=== PATIENT | female | born 1980 | race Hispanic/Latino ===

== ENCOUNTER 2023-12-09 20:37 | Emergency (ER) | payer MEDICAID, OTHER ==
[~2023-12-09] VITALS: Ht 160 cm; Wt 86.6 kg
[2023-12-09 22:27] LABS: APPEARANCE,URINE CLEAR (CLEAR); BILIRUBIN,URINE NEGATIVE (NEGATIVE); COLOR,URINE YELLOW (YELLOW); GLUCOSE, URINE (UA) NEGATIVE (NEGATIVE); KETONES,URINE NEGATIVE (NEGATIVE); LEUKOCYTE ESTERASE ,URINE 25 Leu/uL (NEGATIVE); NITRATE,URINE NEGATIVE (NEGATIVE); OCCULT BLOOD,URINE LARGE (NEGATIVE); PH,URINE 6.5 (5.0-8.0); PROTEIN,URINE 20 mg/dL (NEGATIVE); UROBILINOGEN,URINE 0.2 mg/dL (0.2-1.0)
[2023-12-09 22:34] LABS: ADD UA MICROSCOPIC YES
[2023-12-09 22:37] LABS: MUCUS,URINE RARE LPF (None Seen); SQUAMOUS EPITHELIAL CELL,UR FEW /HPF (0-2)
[2023-12-09] MEDS ORDERED: CEPH500B PO (23:03)
[2023-12-09 23:08] VITALS: BP 141/73; PULSE 73; RESP 20; O2SAT 99
[2023-12-09] MEDS: CEFTRIAXONE 1G VIAL IM ONE (23:11)
== END 2023-12-09 23:13 | disposition home or self-care (01) ==
LOC: EDH 20:37
DX: O23.41 Unspecified infection of urinary tract in pregnancy, first trimester (principal); N39.0 Urinary tract infection, site not specified; I10 Essential (primary) hypertension; E05.90 Thyrotoxicosis, unspecified without thyrotoxic crisis or storm; F41.9 Anxiety disorder, unspecified; Z3A.09 9 weeks gestation of pregnancy; Z98.890 Other specified postprocedural states
CPT/HCPCS: 99285; 76801; 84702; 81001; 36415; 96372; J0696

== ENCOUNTER 2024-07-05 02:20 | Emergency (ER) | payer OTHER, MEDICAID ==
[~2024-07-05] VITALS: Ht 160 cm; Wt 81.6 kg
[~2024-07-05 02:20] MED LIST: CEPH500B PO
--- NOTE | 2024-07-05 02:46 | ERN ---
General Chief Complaint: Back Pain-No Injury Stated Complaint: C/O LOWER BACK PAIN RADIATING TO ABD Time Seen by MD: 02:25 Source: patient History of Present Illness Initial Comments Patient is a 43-year-old female presented to the ED with a 1 day history of lower back pain. Patient states the pain was sudden in onset , intermittent in frequency, rated as a 9/10 and radiates to the lower pelvic area. Patient states that she had a section 3 weeks ago. There is associated nausea but no vomiting, chills but no fevers. Denies any paresthesia, urinary or fecal incontinence. Allergies: Coded Allergies: No Known Drug Allergies (Verified Allergy, 04/27/12) Home Meds Active Scripts Cephalexin Monohydrate (Keflex) 500 Mg Cap, 500 MG PO TID for 7 Days, #21 CAP Prov:ISAMAR PERES 12/09/23 Past Medical History Past Medical History: Anxiety, Hypertension, Other Medical History Other: HYPERTHYROID Past Surgical History: Female( History) : 3 Para: 2 Aborts: 0 ROS Dictation Constitutional: No appetite loss, No fevers, chills , No night sweats, No weakness, fatigue Eye: No vision change, No redness, pain or discharge ENT: No hearing loss, ear pain or discharge, No nose bleeds, No sore throat, Neck: No swelling. pain or stiffness Respiratory: No cough, shortness of breath, wheezing Cardiovascular: No chest pain,, palpitations, dyspnea, No edema Gastrointestinal: No abdominal pain, No nausea, vomiting, No diarrhea, constipation Genitourinary: No painful urination, No blood in urine, No urinary incontinence, No frequency or urgency Musculoskeletal: Low back pain Neurological: No numbness, tingling, No weakness, tremors or seizures Psychiatric: : No depression, No anxiety, No sleep disturbance, No Memory changes Lymphatic: No easy bruising, No bleeding tendencies , No swollen lymph nodes A 13-point Review of Systems was assessed, all of which are negative except for HPI or as indicated above. Physical Exam Physical Exam Dictation General: Alert & Oriented, No acute distress. EENT: No conjunctival redness or discharge noted Tympanic membranes are clear, Normal hearing, Oral mucosa is moist, No pharyngeal erythema, No nasal di scharge, No oral lesions. Neck: Non-tender, No jugular vein distention, No lymphadenopathy, No thyromegaly, Supple. Respiratory: Lungs are clear to auscultation, Respirations are non-labored, Breath sounds are equal, No chest wall tenderness, _. Cardiovascular: Normal rate, Normal rhythm, No murmur, Good pulses equal in all extremities, Normal peripheral perfusion, No edema. Gastrointestinal: Soft, Non-tender, Non-distended, Normal bowel sounds, No organomegaly, _. Musculoskeletal: Normal range of motion, Normal strength, No tenderness, No swelling, No deformity, Normal gait. Integumentary: Warm, Dry, [place], Intact, No pallor, No rash. Neurologic: Alert, Oriented x4, Normal sensory, No focal defects Psychiatric: Cooperative, Appropriate mood & affect, Normal judgement, Non- suicidal. Results Laboratory and Microbiology Lab and Micro Result Laboratory Tests Test 07/05/24 03:49 Urine Color LIGHT-YELLOW (YELLOW) Urine Appearance CLEAR (CLEAR) Urine pH 6.0 (5.0-8.0) Urine Specific [place] 1.012 (1.001-1.031) Urine Protein NEGATIVE mg/dL (NEGATIVE) Urine Glucose (UA) NEGATIVE mg/dL (NEGATIVE) Urine Ketones NEGATIVE mg/dL (NEGATIVE) Urine Occult Blood LARGE (NEGATIVE) H Urine Nitrate NEGATIVE (NEGATIVE) Urine Bilirubin NEGATIVE mg/dL (NEGATIVE) Urine Urobilinogen 0.2 mg/dL (0.2-1.0) Urine Leukocyte Esterase NEGATIVE Eryn/uL Urine RBC 6-10 /HPF (0-1) H Urine WBC 2-5 /HPF (0-1) H Urine Squamous Epithelial Cells RARE /HPF (0-2) Urine Bacteria None /HPF (None Seen) Urine HCG, Qualitative POSITIVE (NEGATIVE) H MDM Potential differential diagnoses include: *Scoliosis of spine Constipation Assessment: We will order an x-ray of the lumbar spine to rule out any fractures or dislocations. We will order ketorolac 30 mg IM for pain and Flexeril 10 mg for muscle relaxation I will re-evaluate the patient after treatment and diagnostic exams have returned to determine whether they require further testing, can be safely discharged home, or need admission for further treatment and evaluation. Given the social determinants of health affecting care, including literacy, access to medical care, prescription drug management, and [id number] drugs, I will ensure that treatment plans are tailored accordingly. Revaluation : Patient is alert and oriented. States she feels a lot better . Superior of the lumbar spine shows evidence of scoliosis and a lot of fecal matter in the colon Disposition: Will discharge patient at this time with instructions to follow up with PCP for further evaluation and treatment. Instructed to take Colace stool softener twice a day to help with bowel movements. verbalized understanding Attestation: Patient's case was discussed with the ER MD. Reviewed the documentation, medical decision making and treatment plan. Agrees with the findings and plan of care. ED Course Orders Procedure Category Date Status Time Lumbar Spine 2-3vws RAD 07/05/24 Taken 02:47 Urinalysis Profile LAB 07/05/24 Complete 02:47 Ketorolac PHA 07/05/24 Complete Tromethamine 15mg/Ml 03:30 Cyclobenzaprine Hcl PHA 07/05/24 Complete (Cyclobenzaprine Hcl 03:30 ,Urine Test LAB 07/05/24 Complete 03:45 Current Medications Medications (Trade) Dose Ordered Sig/Sherif Route PRN Reason Start Time Stop Time Status Last Admin Dose Admin Cyclobenzaprine HCl (Cyclobenzaprine HCl) 10 mg ONCE ONCE PO 07/05/24 03:30 07/05/24 03:31 DC 07/05/24 04:05 Ketorolac Tromethamine (toRADol) 15 mg ONCE ONCE IM 07/05/24 03:30 07/05/24 03:31 DC 07/05/24 04:35 Vital Signs Date Time Temp Pulse Resp B/P (MAP) Pulse Ox O2 Delivery O2 Flow Rate FiO2 07/05/24 04:10 97.3 76 18 154/85 98 Room Air* 0 21 07/05/24 02:24 97.5 76 20 158/94 100 Room Air DX & DISP Disposition: Discharge Departure Impression: Primary Impression: Scoliosis Additional Impression: Constipation Critical Time: 30 minutes Condition: Stable Additional Instructions: Discharge Instructions: *Follow up with your primary care physician in 2 - 3 days after discharge. *Continue all medications as prescribed. Do not discontinue or change dosages without consulting your PCP. *Gradually resume normal activities as tolerated. *Continue a balanced diet . Reduce salt intake to help manage BP. *Seek immediate medical attention if you experience chest pain, SOB or severe headache. *Smoking cessation is strongly advised. Resources for quitting smoking are available upon request. Referrals: BRAULIO GUEVARA MD (PCP) OBSALOMÓN Smith MD Jul 05, 2024 02:46
[2024-07-05] MEDS: CYCLOBENZAPRINE HCL 10 MG TABLET PO ONE (04:05)
[2024-07-05 04:08] LABS: APPEARANCE,URINE CLEAR (CLEAR); BILIRUBIN,URINE NEGATIVE (NEGATIVE); COLOR,URINE LIGHT-YELLOW (YELLOW); GLUCOSE, URINE (UA) NEGATIVE (NEGATIVE); KETONES,URINE NEGATIVE (NEGATIVE); LEUKOCYTE ESTERASE ,URINE NEGATIVE Leu/uL (NEGATIVE); NITRATE,URINE NEGATIVE (NEGATIVE); OCCULT BLOOD,URINE LARGE (NEGATIVE); PROTEIN,URINE NEGATIVE (NEGATIVE); UROBILINOGEN,URINE 0.2 mg/dL (0.2-1.0)
[2024-07-05 04:09] LABS: ADD UA MICROSCOPIC YES
[2024-07-05 04:15] LABS: MUCUS,URINE RARE LPF (None Seen); SQUAMOUS EPITHELIAL CELL,UR RARE /HPF (0-2)
[2024-07-05] MEDS: ketOROlac 15MG/ML VIAL (15MG/ML) IM ONE (04:35)
[2024-07-05 05:16] VITALS: BP 138/76; PULSE 80; RESP 17; TEMP 98; O2SAT 99
--- NOTE | 2024-07-05 12:39 | HMCIMG ---
LUMBAR SPINE 2-3VWS HISTORY: Low back pain COMPARISON: None FINDINGS: 3 images of lumbar spine were obtained. There is straightening of normal lordotic curvature which may be related to muscle spasm or positioning. No loss of vertebral height is seen. No fracture or dislocation is seen. Degenerative changes are seen. IMPRESSION: 1. No fracture is seen.
== END 2024-07-05 05:16 | disposition home or self-care (01) ==
LOC: EDH 02:20
DX: M41.9 Scoliosis, unspecified (principal); K59.00 Constipation, unspecified; I10 Essential (primary) hypertension; Z79.899 Other long term (current) drug therapy
CPT/HCPCS: 99284; 81001; 81025; 72100; 96372; J1885